=== PATIENT | female | born 1980 | race Caucasian/White ===

== ENCOUNTER 2020-08-08 09:22 | Emergency (ER) | payer OTHER, SELFPAY ==
[2020-08-08 09:28] VITALS: BP 112/75; PULSE 95; RESP 16; TEMP 36.8; O2SAT 100
--- NOTE | 2020-08-08 09:36 | ED.URI ---
HPI - URI/Sore Throat General Chief Complaint: Upper Respiratory Infection Stated Complaint: ears throat and chills Time Seen by Provider: 08/08/20 09:36 Source: patient Mode of arrival: ambulatory History of Present Illness HPI Narrative: patient presents with a sore throat and bilateral ear pain. patient states her ears are throbbing. reports nasal congestion. denies any cough or shortness of breath and no covid 19 exposure.. MD elicited complaint: sore throat, rhinorrhea and nasal congestion Related Data Allergies Allergy/AdvReac Type Severity Reaction Status Date / Time No Known Allergies Allergy Verified 08/08/20 09:36 Review of Systems Review of Systems: Narrative: CONSTITUTIONAL: Denies fever, chills, or sweats. EYES: Denies visual changes, redness, or discharge. ENT: Denies rhinorrhea, congestion, sore throat, or otalgia. CARDIOVASCULAR: Denies chest pain, palpitations, or edema. RESPIRATORY: Denies cough or dyspnea. GASTROINTESTINAL: Denies abdominal pain, nausea, vomiting, or diarrhea. GENITOURINARY: Denies dysuria or hematuria. SKIN: Denies rash or itching. MUSCULOSKELETAL: Denies back pain, joint pain, or myalgia. NEUROLOGIC: Denies headache, numbness, or weakness. PSYCHIATRIC: Denies anxiety or depression. PMFSH Comments At time of signature, agree with nursing past medical, surgical, social and family history. There is no relevant family history pertinent to the presenting complaint Exam Narrative: Exam Narrative: GENERAL APPEARANCE: The patient is a well-developed, well-nourished , in no acute distress. SKIN: Skin is warm and dry without erythema, swelling or exudate. There is good turgor. No tenting. HEAD: Atraumatic. Normocephalic. No temporal or scalp tenderness. EYES: Moist and bright. Sclera and conjunctivae normal. No discharge. PERRLA. Extraocular motions intact. Gross visual acuity intact. EARS: Pinna is normal shape and contour. Clear external auditory canals. Still to right TM pearly da silva with good cone of light, no erythema or suppuration. Left TM bulging with moderate erythremia to canal bilateral cerumen noted no gross hearing deficit. NOSE: pink, moist mucosa with good air movement. Clear rhinorrhea without nasal flaring. Septum midline. Mouth: moist mucous membranes. THROAT; mild erythema noted to posterior oropharynx with moderate postnasal drainage. Without exudate or ulceration.. Uvula midline. Normal movement of soft palate. NECK: Supple and nontender with full range of motion without discomfort. No meningeal signs. LUNGS: Equal and bilateral breath sounds without wheezes, rales or rhonchi. CHEST: The chest wall is without retractions or use of accessory muscles. HEART: Has a regular rate and rhythm without murmur, gallops, click or rub. ABDOMEN: Soft, nontender with positive active bowel sounds. No rebound tenderness. EXTREMITIES: Without cyanosis, clubbing or edema. Equal 2+ distal pulses and 2 second capillary refill noted. NEUROLOGIC: alert, active, developmentally normal for age. The patient moves all extremities with normal muscle strength. Normal muscle tone is noted. Normal coordination is noted. NO focal neurological findings noted. Course Vital Signs Vital signs: Vital Signs Temperature 36.8 C 08/08/20 09:28 Pulse Rate 95 08/08/20 09:28 Respiratory Rate 16 08/08/20 09:28 Blood Pressure 112/75 08/08/20 09:28 Pulse Oximetry 100 08/08/20 09:28 Temperature 36.8 C 08/08/20 09:28 Pulse Rate 95 08/08/20 09:28 Respiratory Rate 16 08/08/20 09:28 Blood Pressure 112/75 08/08/20 09:28 Pulse Oximetry 100 08/08/20 09:28 MDM - URI/Sore Throat Differential Diagnosis Differential diagnosis: Likely upper respiratory infection, croup, otitis media, sinusitis, viral infection, bronchitis, influenza, pharyngitis and other (covid 19) Lab Data Labs: Influenza A Screen Negative Reference Range: Nega
== END 2020-08-08 10:00 | disposition home or self-care (01) ==
PROVIDERS: Emergency Provider Nurse Practitioner Family; PCP Nurse Practitioner Family
DX: H66.92 Otitis media, unspecified, left ear (principal); J02.9 Acute pharyngitis, unspecified
CPT/HCPCS: 87081; 87804; 87880; 99213; G0463